=== PATIENT | male | born 1985 | race Caucasian/White ===

== ENCOUNTER 2017-09-03 15:44 | Emergency (ER) | payer OTHER | END 2017-09-03 16:20 | LOC: ER 16:20 | DX: M54.2 Cervicalgia (principal); F15.10 Other stimulant abuse, uncomplicated; V48.5XXA Car driver injured in noncollision transport accident in traffic accident, initial encounter; Y93.I9 Activity, other involving external motion; Y92.410 Unspecified street and highway as the place of occurrence of the external cause; Y99.8 Other external cause status | CPT/HCPCS: 99284 ==